=== PATIENT | male | born 1935 | race Caucasian/White ===

== ENCOUNTER 2020-12-22 22:25 | Inpatient (IN) | payer OTHER ==
[~2020-12-22] VITALS: Ht 175.3 cm; Wt 65.8 kg
[2020-12-22 22:25] VITALS: BP 168/70
[~2020-12-22 22:25] MED LIST: ASPIRIN EC81 M1 PO; CLEOCIN HCL150 MG PO; EYE PROMISE RESTORE PO; FISH OIL DR 1,1 EAC1 PO; LANOXIN 0.120.125 M1 PO; LANOXIN 0.250.25 M1 PO; LIPITOR20 MG PO; LIPITOR40 MG PO; PRESERVISION A1 EAC2 PO; PRINIVIL10 MG PO
[2020-12-22 22:44] LABS: ABSOLUTE NEUTROPHILS 5.1 thou/uL (1.4-8.2); BASOPHILS 1.5 % (0.0-2.0); EOSINOPHILS 1.8 % (0.0-3.0); HEMOGLOBIN 13.7 gm/dL (14.0-18.0); LYMPHOCYTES 18.5 % (24.0-44.0); MCHC 33.5 g/dL (28.0-37.0); MCV 98.3 fL (80.0-100.0); MONOCYTES 8.5 % (1.0-8.0); PLATELET COUNT 242 thou/uL (150-400); POLYS 69.7 % (36.0-66.0); RBC 4.17 mil/uL (4.50-6.00); RDW 13.9 % (10.5-14.5); WBC 7.4 thou/uL (4.0-11.0)
[2020-12-22 22:49] LABS: ANION GAP 10 mmol/L (7-16); BUN 18 mg/dL (7-18); CALCIUM 8.5 mg/dL (8.5-10.1); CHLORIDE 93 mmol/L (98-107); CO2 24 mmol/L (21-32); CREATININE 1.1 mg/dL (0.7-1.3); GLUCOSE 113 mg/dL (74-106); POTASSIUM 4.1 mmol/L (3.5-5.1); SODIUM 127 mmol/L (136-145)
[2020-12-22 23:01] LABS: ALBUMIN 3.6 g/dL (3.4-5.0); DIRECT BILIRUBIN 0.2 mg/dL (<0.1-0.2); PHOSPHORUS 3.5 mg/dL (2.5-4.9); SGOT 30 U/L (15-37); SGPT 24 U/L (30-65); TOTAL BILIRUBIN 0.7 mg/dL (0.2-1.0); TOTAL PROTEIN 6.5 g/dL (6.4-8.2); TROPONIN-I <0.06 ng/mL (<0.06)
[2020-12-22 23:23] LABS: BE(vivo) -2.2 mmol/L (-2 to +3); HCO3 22.1 mmol/L (22.0-26.0); PCO2 36.9 mmHg (35.0-45.0); pH 7.396 (7.360-7.450); sO2 97.4 % (92.0-98.0)
[2020-12-23 01:34] LABS: URINE BILIRUBIN NEGATIVE (Negative); URINE BLOOD NEGATIVE (Negative); URINE CLARITY CLEAR; URINE COLOR YELLOW; URINE GLUCOSE-RANDOM* NEGATIVE (Negative); URINE KETONES NEGATIVE (Negative); URINE LEUKOCYTES-REFLEX NEGATIVE (Negative); URINE NITRITE-REFLEX NEGATIVE (Negative); URINE PROTEIN (DIPSTICK) TRACE (Negative); URINE SPECIFIC GRAVITY 1.015 (1.005-1.035)
--- NOTE | 2020-12-23 02:47 | NUR ---
ALISHA Braun (daughter) would like an update on pt's POC after physicians' consults. Aparna's number: [phone]
--- NOTE | 2020-12-23 14:16 | EKG ---
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 : [id number] Requested By: Rickey Marina Order Number: [id number] MD: Moi Mixon Measurements Intervals [place] Rate: 62 P: 48 NV: 208 QRS: -44 QRSD: 114 T: 72 QT: 419 QTc: 426 Interpretive Statements Sinus rhythm with first-degree AV block Atrial premature complex Left axis deviation Low voltage Possible inferior infarct, age indeterminate Compared to ECG 01/07/2005 07:16:11 Atrial premature complex(es) now present Sinus bradycardia no longer present Inferior Q waves are more prominent Electronically Signed On 12-23-2020 14:16:24 [employer]AND [employer] by Moi Mixon [email or web address] <ELECTRONICALLY SIGNED> By: Moi Mixon MD, [facility] 12/23/20 1416 2245 2245 Moi Mixon MD, [facility] /EPI
[2020-12-23 20:08] VITALS: BP 164/63
--- NOTE | 2020-12-23 20:09 | NUR ---
Handoff sent to 4W
[2020-12-23 20:18] VITALS: BP 150/53
[2020-12-23 20:56] VITALS: BP 143/54
[2020-12-24] VITALS (7 sets, daily range): BP systolic 100–134; BP diastolic 45–70
--- NOTE | 2020-12-24 07:47 | NUR ---
VSS-AFEBRILE. C/O LEFT HIP PAIN THAT IS WELL RELIEVED WITH IV MORPHINE. TURNED EVERY TWO HOURS OVERNIGHT FOR COMFORT. NPO AFTER MIDNIGHT FOR SURGERY THIS AM. VERBALIZED UNDERSTANDING OF ALL ADMISSION INFORMATION. CALLS APPROPRIATELY FOR ANY NEEDED ASSISTANCE.
[2020-12-24 08:00] LABS: HEMATOCRIT 35.7 % (42.0-52.0); HEMOGLOBIN 12.1 gm/dL (14.0-18.0); MCH 33.1 pg (26.0-34.0); MCHC 33.8 g/dL (28.0-37.0); MCV 97.9 fL (80.0-100.0); RBC 3.64 mil/uL (4.50-6.00); RDW 13.9 % (10.5-14.5); WBC 11.2 thou/uL (4.0-11.0)
[2020-12-24 08:14] LABS: CALCIUM 8.4 mg/dL (8.5-10.1); CREATININE 0.8 mg/dL (0.7-1.3)
--- NOTE | 2020-12-24 09:48 | HC ---
[facility] [place] [address] CONSULTATION Name: VERONIKA PETERSON Room #: 457-P ADM IN M.R.#: [id number] Admission: 12/23/20 Attend Phys: Mustapha Moy, Discharge: Date of : 37 Report #: [id number] THIS REPORT FOR: cc: Giancarlo Martines MD, David A. MD Clymer, David J. MD ~ DATE OF SERVICE: 12/23/2020 CHIEF COMPLAINT: Left proximal femur fracture. HISTORY OF PRESENT ILLNESS: This 85-year-old frail gentleman still lives and functions independently. He has some gait and balance problems and uses a walker at home. He stumbled this morning resulting in a fall onto the left side. He came to [facility] where x-rays confirm an intertrochanteric fracture of the left proximal femur. He has no other apparent injuries. At the time of my evaluation, he is frail, but seems alert and oriented. He complains of left hip pain, but denies any other areas of significant discomfort. He demonstrates satisfactory alignment and gentle movement of the neck and low back without much pain. He seems to have good movement of both upper extremities without discomfort. The pelvis appears to be generally stable and nontender. The right lower extremity reveals good movement at the hip and knee without discomfort or crepitus or deformity. Left lower extremity is shortened and slightly rotated consistent with a proximal femur fracture. The knee, lower leg and foot appeared to be normal. X-rays of the pelvis and left hip reveal a comminuted intertrochanteric fracture of the left proximal femur. IMPRESSION: I have discussed this with the patient and also with Dr. Pierce, his primary physician. I think surgical repair with a proximal femoral antegrade TFN nail fixation would be most appropriate. At this point, his COVID testing is still pending and his general medical workup is also pending. There is some question about his fall as he apparently became quite lightheaded and may have had an episode of hypotension. At this point, however, there is no evidence of any other neurologic injury or problem. Given this, I think it is reasonable to go ahead with planning for left hip surgical repair, possibly tomorrow if he is stable and medically cleared. I have discussed this with the patient and he understands and wished to proceed with surgical repair of the left proximal femur fracture. <ELECTRONICALLY SIGNED> By: Giancarlo Sifuentes MD 12/24/20 0948 1042 1217 Giancarlo Sifuentes MD /nt
--- NOTE | 2020-12-24 10:02 | O ---
[facility] [place] [address] OPERATIVE REPORT Name: VERONIKA PETERSON Room #: 457-P [facility] IN M.R.#: [id number] Admission: 12/23/20 Attend Phys: Mustapha Moy, Discharge: Date of : 37 Report #: [id number] THIS REPORT FOR: cc: Giancarlo Martines MD, David A. MD Clymer, David J. MD ~ DATE OF SERVICE: 12/24/2020 PREOPERATIVE DIAGNOSIS: Left proximal femur fracture, intertrochanteric region. POSTOPERATIVE DIAGNOSIS: Left proximal femur fracture, intertrochanteric region. PROCEDURE: Open reduction and internal fixation of left proximal femur fracture with antegrade TFN nail fixation. SURGEON: Giancarlo Sifuentes MD INDICATION: This frail, but still alert 85-year-old gentleman lives in his own home with family assistance. He fell injuring the left hip. X-rays confirm a comminuted, displaced and unstable intertrochanteric fracture of the left proximal femur. No other injuries were identified. I have discussed with the patient treatment options and he has elected to go ahead with surgical repair. DESCRIPTION OF PROCEDURE: The patient was taken to the operating room where he was placed under general anesthesia. Prophylactic intravenous antibiotics were administered. He was positioned on the fracture table with gentle longitudinal traction, which resulted in satisfactory reduction and alignment of the left proximal femur fracture. The lateral aspect of the left hip and thigh were meticulously prepped and draped. A skin incision was made just proximal to the greater trochanter. A guidewire was passed through the trochanter and down the canal. Its position was checked with C-arm. The trochanteric entry point was opened with a reamer and a Synthes TFN nail was selected using the 11 mm diameter x 235 mm length device. This was impacted down the canal to an appropriate position. A guidewire was placed through the outrigger guide into the low mid portion of the femoral head and neck. Its position was checked with C-arm and found to be satisfactory. It was measured and a 100 mm length helical blade seemed to fit most appropriately. This was impacted up into the femoral neck and head, bringing the tip of the nail to about 1 cm below the subchondral bone in the femoral head, it seemed to have good purchase. The locking screws were tightened. The distal interlock screw was placed and measured at 40 mm. It locked down and seemed to be stable. The C-arm views were reviewed and demonstrated acceptable alignment and position of the fixation. The wounds were then copiously irrigated. Good hemostasis was established. The wounds were closed with 0 Monocryl and 2-0 Monocryl and paras in the skin. A sterile [address] [address] OPERATIVE REPORT Name: VERONIKA PETERSON Room #: 457-P [facility] IN M.R.#: [id number] Admission: 12/23/20 Attend Phys: Mustapha Moy, Discharge: Date of : 37 Report #: [id number] dressing was applied. The patient was awakened and returned to recovery room in good condition. <ELECTRONICALLY SIGNED> By: Giancarlo Sifuentes MD 12/24/20 1002 0940 0950 Giancarlo Sifuentes MD /nt
--- NOTE | 2020-12-24 13:04 | 2DMMODE ---
[facility] [place] [address] 2 D/M-MODE ECHOCARDIOGRAM Name: VERONIKA PETERSON Room #: 457-P ADM IN M.R.#: [id number] Admission: 12/23/20 Attend Phys: Mustapha Moy, Discharge: Date of : 37 Report #: [id number] THIS REPORT FOR: cc: Giancarlo Martines MD, David A. MD Santiago, Patrick MD [facility] ~ APPROVED REPORT Study performed: 12/24/2020 11:43:18 EXAM: Comprehensive 2D, Doppler, and color-flow Echocardiogram Patient Location: In-Patient Room #: 457 Status: routine BSA: 1.82 HR: 61 bpm BP: 133/54 mmHg Rhythm: 457 Other Information Study Quality: Adequate Indications COPD 2D Dimensions RVDd: 41.43 mm IVSd: 7.82 (7-11mm) LVOT Diam: 21.68 (18-24mm) LVDd: 41.17 mm PWd: 8.28 (7-11mm) Ascending Ao: 37.90 (22-36mm) LVDs: 32.91 (25-40mm) Left Atrium: 32.25 (27-40mm) Aortic Root: 32.22 mm Volumes Left Atrial Volume (Systole) Single Plane 4CH: 39.41 mL Single Plane 2CH: 31.60 mL LA ESV Index: 25.00 mL/m2 Aortic Valve AoV Peak Vasiliy.: 1.83 m/s AO Peak Gr.: 13.43 mmHg LVOT Max P.88 mmHg LVOT Max V: 1.21 m/s ROXANNA Vmax: 2.44 cm2 [facility] [address] [address] 2 D/M-MODE ECHOCARDIOGRAM Name: VERONIKA PETERSON Room #: 457-P [facility] IN .R.#: [id number] Admission: 12/23/20 Attend Phys: Mustapha Vincent Discharge: Date of : 37 Report #: [id number] Mitral Valve E/A Ratio: 0.8 MV Decel. Time: 2930.22 ms MV E Max Vasiliy.: 0.37 m/s MV A Vasiliy.: 0.46 m/s MV PHT: 849.76 ms IVRT: 96.89 ms Pulmonary Valve PV Peak Vasiliy.: 0.91 m/s PV Peak Gr.: 3.31 mmHg Tricuspid Valve TR Peak Vasiliy.: 2.87 m/s RAP Estimate: 7.00 mmHg TR Peak Gr.: 32.92 mmHg PA Pressure: 40.00 mmHg Left Ventricle The left ventricle is normal size. There is normal LV segmental wall motion. There is normal left ventricular wall thickness. Left ventricular systolic function is normal. The left ventricular ejection fraction is within the normal range. LVEF is 55-60%. Transmitral Doppler flow pattern suggests impaired LV relaxation. Right Ventricle The right ventricle is normal size. The right ventricular systolic function is normal. Atria The left atrium size is normal. The right atrium size is normal. Aortic Valve The aortic valve is normal in structure. No aortic regurgitation is present. There is no aortic valvular stenosis. Mitral Valve The mitral valve is normal in structure. Trace mitral regurgitation. No evidence of mitral valve stenosis. Tricuspid Valve The tricuspid valve is normal in structure. Trace to mild tricuspid regurgitation. Pulmonic Valve [facility] [address] [place] [address] 2 D/M-MODE ECHOCARDIOGRAM Name: KRISTENVERONIKA STEVEN Room #: 457-P ADM IN M.R.#: [id number] Admission: 12/23/20 Attend Phys: Mustapha Vincent Discharge: Date of : 37 Report #: [id number] Pulmonic valve is not well visualized. Trace to mild pulmonic regurgitation. Great Vessels The aortic root is normal in size. IVC is not well visualized. Pericardium There is no pericardial effusion. No pleural effusion. <Conclusion> Normal left ventricular size/wall thickness Ejection fraction 55% Grade 1 diastolic dysfunction Normal right ventricular size/function Normal atrial size Color-flow Doppler study was performed of the aortic/mitral/tricuspid/pulmonary valve Normal aortic/mitral valve structure and function Trace tricuspid valve insufficiency Pulmonary artery systolic pressure estimated 40 mmHg No pericardial effusion <ELECTRONICALLY SIGNED> By: Ede Rodriguez MD, [facility] 12/24/201302 02 02 Ede Rodriguez MD, [facility] /INF
--- NOTE | 2020-12-24 19:31 | NUR ---
PT A&OX4, VSS, PAIN IN LEFT HIP. MORPHINE GIVEN FOR PAIN. PATIENT POST OP AND BACK TO FLOOR APPROX 1300. PATIENT REPOSITIONED OFTEN. PATIENTS DAUGHTER WOULD LIKE TO ADD HOME MEDICATIONS TO LIST. FISH OIL AND ARDS FOR EYES. DRESSING TO LEFT HIP C/D/I. PATIENT ROOM AIR, NO SIGNS OF DISTRESS. PATIENT ADVANCED TO REGULAR DIET AND TOLERATING. DIAZ INTACT, IV PATENT, WILL CONTINUET TO MONITOR.
--- NOTE | 2020-12-25 05:24 | NUR ---
ASSESSMENT DOCUMENTED.PT BEEN RESTING IN NO ACUTE DISTRESS.S/P ORIF TO LEFT HIP.SURGICAL DRESSING CDI.NO ACTIVE BLEEDING NOTED.PT DENIES NUMBNESS TO EXTREMITIES.SENSATION INTACT.EMILY PAUL,REY PanchalO.VSS.ON OXYGEN AT [facility],NO RESP DISTRESS REPORTED OR NOTED.C/O PAIN LAST NOC AT 310 BUT DECLINING THE PAIN MEDICINES.PT THIS AM AGREED TO TAKE PAIN MED FOR LEFT HIP PAIN OF 5/10 ON PAIN SCALE.SCDS.PT DENIES FURTHER CONCERNS AT THIS TIME.
[2020-12-25 05:44] LABS: HEMATOCRIT 29.8 % (42.0-52.0); HEMOGLOBIN 10.2 gm/dL (14.0-18.0); MCH 33.8 pg (26.0-34.0); MCHC 34.3 g/dL (28.0-37.0); MCV 98.6 fL (80.0-100.0); RBC 3.03 mil/uL (4.50-6.00); RDW 14.1 % (10.5-14.5); WBC 9.9 thou/uL (4.0-11.0)
[2020-12-25 06:19] VITALS: BP 127/65
--- NOTE | 2020-12-25 14:09 | NUR ---
PT ADMITTED RELATED TO LEFT HIP FRACTURE S/P ORIF. CM REVIEWED CHART AND SPOKE WITH CARE TEAM. CM MET WITH PT AT BEDSIDE THIS DAY. PT APPEARED TO BE A&O X4. CM ROLE INTRODCUED. PT INDICATED HE LIVES ALONE IN A HOUSE WITH 2 STESP TO ENTER AND STEPS DOWN TO REC ROOM. PT INDICATED HE HAS A CAN AND TWO 4WW FOR USE AT HOME. PT INDICATED NO PREVIOUS HH HX. PT INDICATED HE HAD GONE TO [facility] IN MID FEBRUARY OF 2017. PT INDICATED HE WOULD WANT TO TO [facility] FOR POST ACUTE CARE STAY THIS TIME. CM CALLED AND SPOKE WITH PT'S DTR SHE CONFIRMED THE ABOVE AND INDICATED THAT PT HAD DONE RESPITE STAY WITH HH SERVICES AT [facility] IN 2017. 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 REFERRAL SENT FOR REVIEW FOR POSSIBLE ADMISSION. CM TO FOLLOW INDICATED WITH DC PLANNING. WILL NEED [employer] AUTH.
[2020-12-25 15:29] VITALS: BP 109/41
--- NOTE | 2020-12-25 18:25 | NUR ---
ASSUMED CARE OF PT AT SHIFT CHANGE. ASSESSMENT CHARTED. MEDS GIVEN PER DEC. PT A&OX4, C/O PAIN TREATED WITH IV AND PO MEDS WITH PARTIAL RELIEF. PT UP IN CHAIR FOR MOST OF DAY. PT CONCERNED ABOUT DC TOMORROW, DOES NOT FEEL HE'S READY D/T PAIN. WILL CONTINUE TO MONITOR FOR CHANGE AND FOLLOW POC.
[2020-12-25 19:47] VITALS: BP 129/50
--- NOTE | 2020-12-26 01:58 | NUR ---
PT CARE ASSUMED WITH PT IN BED .PT IS A/O XA.PT IS UP WITH PT/OT.PT [place] WITH NO HEARING AIDS.PT IS ON O2 4L VIA NC.DRESSING ON LT HIP D/C/I.IV ACCESS ON LT FA SL.PT C/O WHEN MOVING .PT ON TELE WITH NSR/PVC.WILL CONTINUE TO MONITOR
[2020-12-26 05:08] LABS: HEMATOCRIT 27.6 % (42.0-52.0); HEMOGLOBIN 9.5 gm/dL (14.0-18.0); MCH 33.7 pg (26.0-34.0); MCHC 34.4 g/dL (28.0-37.0); MCV 98.1 fL (80.0-100.0); RBC 2.81 mil/uL (4.50-6.00); RDW 13.9 % (10.5-14.5); WBC 8.9 thou/uL (4.0-11.0)
[2020-12-26 06:37] VITALS: BP 101/49
[2020-12-26 06:50] VITALS: BP 101/49
--- NOTE | 2020-12-26 11:58 | NUR ---
Received awake on bed. Due medications given as prescribed, able to swallow meds w/o difficulty. On room air. Vital signs stable. On telemetry; no complains and signs of chest pain, crushing sensation and heaviness. Assisted in ADLs. On regular diet- tolerating well; no nausea, no vomiting and no abdominal pain noted; assisted and encouraged in eating and drinking. Falls bundle in place. Continent of bowel and bladder, using urinal at times- output measured and recorded accordingly. With SL at L FA. POD 2- hip surgery; dressing C/D/I. Complained of pain, due PRN pain meds given as prescribed. Pt's daughter visited today- update given. Still a/w insurance authorization for SNF- pt and daughter aware. To continue monitoring patient.
--- NOTE | 2020-12-26 13:26 | NUR ---
PT ACCEPTED FOR ADMISSION TO [facility] ONCE MEDICALLY STABLE. THEY HAVE SUBMITTED FOR INSURANCE AUTH. AWAITING AUTH. REPEAT COVID TEST ORDERED. PT AND DTR ARE AWARE AND AGREEABLE. CM TO FOLLOW INDICATED WITH DC PLANNING.
--- NOTE | 2020-12-27 03:40 | NUR ---
PT IS A/O X3 AND IS FORGETFUL AT TIMES. IS UP WITH MAX ASSIST DUE TO PAIN IN LEFT HIP WHILE TRANSFERING. ROOM AIR, SB/SR ON THE MONITOR. USES A URINAL AT THE BEDSIDE TO VOID. NO BM THIS SHIFT. C/O PAIN. PRN PAIN MEDICATION PROVIDED DIRECTED. DRSG TO LEFT HIP IS C/D/I. FALL PRECAUTIONS IMPLEMENTED, SCD'S IN PLACE. CALL LIGHT IS WITHIN REACH. CALLS OUT APPROPRIATELY.
[2020-12-27 07:00] VITALS: BP 131/72
[2020-12-27] MEDS ORDERED: NORCO 10-325 T1 EACH PO (09:07)
[2020-12-27 09:30] LABS: HEMATOCRIT 27.7 % (42.0-52.0); HEMOGLOBIN 9.6 gm/dL (14.0-18.0); MCH 34.1 pg (26.0-34.0); MCHC 34.6 g/dL (28.0-37.0); MCV 98.6 fL (80.0-100.0); RBC 2.81 mil/uL (4.50-6.00); RDW 13.7 % (10.5-14.5)
[2020-12-27 09:39] LABS: CALCIUM 8.4 mg/dL (8.5-10.1); CREATININE 0.8 mg/dL (0.7-1.3); POTASSIUM 4.2 mmol/L (3.5-5.1)
--- NOTE | 2020-12-27 12:25 | NUR ---
AUTH WAS RECEIVED FOR PT TO DC TO [facility] THIS DAY. CHART COPY ORDERED. ORDERS FAXED. NURSE PROVIDED NUMBER FOR REPORT. [facility] TRANSPORT ARRANGED THROUGH [facility] FOR 1330. CM CALLED AND LEFT FOR PT'S DTR. CM NOTIFIED NURSES THAT PT HAS TWO HOME MEDS THAT NEED TO GO WITH HIM FISH OIL AND EYE DROPS. NO OTHER CM INTERVENTION INDICATED. CASE CLOSED.
--- NOTE | 2020-12-27 14:30 | NUR ---
PT D/C TO [facility]. REPORT GIVEN TO BERTIN GROVER VIA PHONE. DAUGHTER NOTIFIED OF D/C TO FACILITY. PT ESCORTED BY STAFF TO [facility] VIA WHEELCHAIR. HOME MEDICATIONS TAKEN FROM MED ROOM AND GIVEN DIRECTLY TO PATIENT. ALL PERSONAL BELONGINGS GIVEN TO PATIENT PRIOR TO D/C.
== END 2020-12-27 14:00 | DRG 480 ==
LOC: ER 22:25 → 4W 12-23 00:51 → EROBS 12-23 00:51 → 4W 12-23 20:19
PROVIDERS: Emergency Medicine; Family Medicine; Orthopaedic Surgery; Surgery; ADMIT Surgery; ATTEND Surgery
PROC: 0QS704Z Reposition Left Upper Femur with Internal Fixation Device, Open Approach (ICD-10-PCS; principal; 2020-12-24)
DX: S72.142A Displaced intertrochanteric fracture of left femur, initial encounter for closed fracture (principal); J96.01 Acute respiratory failure with hypoxia; E87.1 Hypo-osmolality and hyponatremia; J44.1 Chronic obstructive pulmonary disease with (acute) exacerbation; Z60.2 Problems related to living alone; I10 Essential (primary) hypertension; I49.9 Cardiac arrhythmia, unspecified; F17.210 Nicotine dependence, cigarettes, uncomplicated; Z20.822 Contact with and (suspected) exposure to COVID-19; E78.5 Hyperlipidemia, unspecified; Z71.6 Tobacco abuse counseling; Z79.82 Long term (current) use of aspirin; Z79.899 Other long term (current) drug therapy; W18.39XA Other fall on same level, initial encounter; Y93.89 Activity, other specified; Y92.89 Other specified places as the place of occurrence of the external cause; Y99.8 Other external cause status
CPT/HCPCS: 10045; 50101; 50386; 51412; 51538; 56525; 57092; 5741; 5742; 58263; 62110; 62900; 70005

== ENCOUNTER → 2021-06-06 | Outpatient (CLI) | payer OTHER ==
[~2021-06-06] MED LIST changes: +NORCO 10-325 T1 EACH PO
== END ==
LOC: CAT 10:34
PROVIDERS: ATTEND Orthopaedic Surgery
DX: S72.8X2A Other fracture of left femur, initial encounter for closed fracture (principal); X58.XXXA Exposure to other specified factors, initial encounter; Y93.89 Activity, other specified; Y92.89 Other specified places as the place of occurrence of the external cause; Y99.8 Other external cause status